=== PATIENT | female | born 1950 | race Caucasian/White ===

== ENCOUNTER 2024-09-10 09:58 | Day surgery (SDC) | payer MEDICARE, OTHER, SELFPAY ==
[2024-09-08 14:32] VITALS: BMI 22.4
[2024-09-10 10:26] VITALS: BMI 22.1
[2024-09-10 10:51] VITALS: BP 126/81; PULSE 75; RESP 16; TEMP 37; O2SAT 100
--- NOTE | 2024-09-10 11:36 | PM.HP.1 ---
History of Present Illness History of Present Illness Date Patient Seen: 09/10/24 Time Patient Seen: 11:36 Chief complaint: Bronchoscopy w/lavage Narrative: The previous notes were reviewed, patient examined and consent obtained the day of this notation. Patient will proceed with procedure. [facility] Medical History (Updated 09/08/24 @ 14:43 by Magda Pierson RN) Allergic rhinitis Hypothyroid GERD (gastroesophageal reflux disease) HTN (hypertension) Emphysema/COPD Pulmonary nodule Social History household members: spouse Smoking Status: Former smoker alcohol intake: current Meds Home Medications and Allergies Home Medications Medication Instructions Recorded Confirmed Type bupropion HCl 100 mg tablet 100 mg PO ONCE 10/17/23 09/10/24 History carvedilol 12.5 mg tablet 12.5 mg PO BID 10/17/23 09/10/24 History levothyroxine 75 mcg capsule 75 mcg PO DAILY 10/17/23 09/10/24 History losartan 100 mg tablet 100 mg PO DAILY 10/17/23 09/10/24 History trazodone 100 mg tablet 100 mg PO BEDTIME PRN Insomnia 10/17/23 09/10/24 History Allergies Allergy/AdvReac Type Severity Reaction Status Date / Time Penicillins AdvReac Severe Fainting Verified 06/18/24 09:42 albuterol AdvReac Intermediate Swelling Verified 09/10/24 10:22 of the Eye aspirin AdvReac Intermediate Ringing in Verified 06/18/24 09:42 ears Exam Vital Signs (past 8 hours): - 09/10/24 10:51 Temperature 98.6 F Pulse Rate 75 Respiratory Rate 16 Blood Pressure 126/81 Pulse Oximetry 100 Oxygen Delivery Method Room Air Oxygen Delivery Method Room Air Assessment & Plan Time-Based Coding :: [TOTAL MINUTES] spent with patient and on the chart (including review of chart, obtaining history, exam, reviewing outside data, placing orders, documenting exam and treatment plan, and counseling patient) on [DATE].
[2024-09-10] MEDS: LIDOCAINE 2% INJ SDV 5ML 5 ML INJ (11:50)
--- NOTE | 2024-09-10 11:53 | PM.PROC.1 ---
Procedures Date/Time Date of procedure: 09/10/24 Time of procedure: 11:53 General Procedure description: Bronchoscopy Following a time out for verification, the patient was put under anesthesia and LMA placed. The bronchoscope was passed to the vocal cords and a total of 5 ml 2% lidocaine was administered. The scope was passed into the trachea without difficulty. There were moderate thin frothy secretions which were easily suctioned. The trachea , right and left main stems as well as proximal airway segments were are grossly normal. The anteromedial segment of the left lower lobe was wedged and lavaged with return of cellular non bloody, non purulent fluid. A total of 60 ml 0.9% saline was used for lavage with return of approximately 10 ml. The patient had coughing but otherwise tolerated the procedure well. There were no immediate complications. Samples: To micro and path Complications: none
--- NOTE | 2024-09-10 11:54 | SUR.OPER ---
patient is supine in gurney with arm rails up, patient's arms are at her side with a pillow under her head and blankets.
[2024-09-10 12:10] VITALS: BP 134/77; PULSE 70; RESP 14; TEMP 36.2; O2SAT 95
[2024-09-10 12:15] VITALS: BP 134/77; PULSE 66; RESP 16; O2SAT 93
[2024-09-10 12:20] VITALS: BP 120/63; PULSE 65; RESP 23; O2SAT 93
[2024-09-10 12:25] VITALS: BP 131/66; PULSE 72; RESP 23; TEMP 36.3; O2SAT 95
[2024-09-10 12:55] VITALS: BP 129/80; PULSE 63; RESP 18; O2SAT 96
== END 2024-09-10 13:04 | disposition home or self-care (01) ==
PROVIDERS: PCP Nurse Practitioner; Referring Provider Internal Medicine Critical Care Medicine; Visit Provider Internal Medicine Critical Care Medicine
PROC: 0BJ08ZZ Inspection of Tracheobronchial Tree, Via Natural or Artificial Opening Endoscopic (ICD-10-PCS; CPT 31622; principal; 2024-09-10 11:15)
DX: R91.1 Solitary pulmonary nodule (principal)
CPT/HCPCS: 31622; 87070; 87101; 87116; 87205; 87206; J1100; J2704

== ENCOUNTER → 2025-02-18 12:01 | Outpatient (CLI) | payer MEDICARE, OTHER, SELFPAY ==
--- NOTE | 2025-02-18 12:05 | DI.CT.S_ITS ---
PROCEDURE: CT CHEST WO CON INDICATIONS: Cavitary lesion of the lung, eval for change TECHNIQUE: Noncontrast 2.0-2.5 mm thick sections acquired from the pulmonary apices to the posterior costophrenic angles. 7 mm thick axial MIP and 5 mm coronal and sagittal reformats were then acquired. For radiation dose reduction, the following was used: automated exposure control, adjustment of mA and/or kV according to patient size. COMPARISON: Prior CT chest FINDINGS: Image quality: Diagnostic. Overall the amount of solid soft tissue attenuation of the previously reported spiculated cavitary nodule in the left lower lobe anteriorly is increased which allowing for differences in technique and measurement placement now measures up to 2.0 cm transverse by 1.6 cm AP by 1.4 cm cc maximal dimensions although this may be represent filling in of the cavitation of an infectious/inflammatory process, slow growing neoplasm must be considered and continued follow-up is needed if no intervention performed. PET-CT or biopsy should be considered. Remainder of the exam is unchanged. Mild nonspecific bilateral peribronchial thickening and pleural-parenchymal scarring predominantly in the lower lobes unchanged. Moderate COPD/ centrilobular emphysematous changes predominantly in the upper lobes unchanged. IMPRESSION: Mildly increased solid cavitary lesion in the left lower lobe as discussed above follow-up is needed. Other chronic findings as above. Dictated by: Bassam Jj M.D. on 02/18/2025 at 23:45 Approved by: Bassam Jj M.D. on 02/18/2025 at 23:52
== END ==
PROVIDERS: PCP Nurse Practitioner; Referring Provider Internal Medicine Critical Care Medicine; Visit Provider Internal Medicine Critical Care Medicine
DX: J98.4 Other disorders of lung (principal); J44.9 Chronic obstructive pulmonary disease, unspecified
CPT/HCPCS: 71250